=== PATIENT | female | born 1970 | race Caucasian/White ===

== ENCOUNTER 2018-02-23 15:58 | Emergency (ER) | payer OTHER ==
[2018-02-23] MEDS ORDERED: NS 1,000 ML IV ONE (16:17)
[2018-02-23] MEDS ORDERED: LORazepam 2 MG/ML INJ IVP ONE (16:21)
--- NOTE | 2018-02-23 16:21 | EDPHY ---
H & P Stated Complaint: suspected stroke Time Seen by Provider: 02/23/18 16:07 HPI/ROS: CHIEF COMPLAINT: Tremors HISTORY OF PRESENT ILLNESS: Patient is a 47-year-old female who comes from her primary care doctor quick is office with new onset tremors in her right arm and leg. She also has generalized muscle weakness and trouble ambulating. She states that her symptoms [place] at the airport [place] 1 week ago. Her noticed her head bobbing. Then over the next several days she began having gradually increasing tremors in her right arm. She also complains of generalized weakness in all of her extremities. Her states that she needs support to help ambulate. She he also complains of shooting pain from her left neck to left lower back and left thigh. She has no significant past medical history. No recent fevers or illness. She did receive a flu vaccination 2 months ago. No trauma. No trouble with speech. Not slurred. No trouble with word finding. Answers all questions appropriately. Seems calm. Severity: Moderate Modifying factors: None REVIEW OF SYSTEMS: Constitutional: denies: chills, fever, recent illness, recent injury EENTM: denies: blurred vision, double vision, nose congestion Respiratory: denies: cough, shortness of breath Cardiac: denies: chest pain, irregular heart rate, lightheadedness, palpitations Gastrointestinal/Abdominal: denies: abdominal pain, diarrhea, nausea, vomiting, blood streaked stools Genitourinary: denies: dysuria, frequency, hematuria, pain Musculoskeletal: See HPI Skin: denies: lesions, rash, jaundice, bruising Neurological: See HPI Hematologic/Lymphatic: denies: blood clots, easy bleeding, easy bruising Immunologic/allergic: denies: HIV/AIDS, transplant 10 systems reviewed and negative except as noted EXAM: GENERAL: Well-appearing, well-nourished and in no acute distress. HEAD: Atraumatic, normocephalic. EYES: Pupils equal round and reactive to light, extraocular movements intact, sclera anicteric, conjunctiva are normal. ENT: TMs normal, nares patent, oropharynx clear without exudates. Moist mucous membranes. NECK: Normal range of motion, supple without lymphadenopathy or JVD. LUNGS: Breath sounds clear to auscultation bilaterally and equal. No wheezes rales or rhonchi. HEART: Regular rate and rhythm without murmurs, rubs or gallops. ABDOMEN: Soft, nontender, normoactive bowel sounds. No guarding, no rebound. No masses appreciated. BACK: No CVA tenderness, no spinal tenderness, step-offs or deformities EXTREMITIES: Normal range of motion, no pitting or edema. No clubbing or cyanosis. NEUROLOGICAL: Cranial nerves II through XII grossly intact. Moderate head tremor/popping, noticeable right arm tremor. Normal speech, normal gait. 4/5 strength, normal movement in all extremities, normal sensation, normal reflexes. no pronator drift but does have trouble completely pronating right arm. I observed her ambulating she does not favor 1 side or the other but moves slowly and seems to feel unsteady. Able to lift legs off bed for greater than 5 sec. PSYCH: Normal mood, normal affect. SKIN: Warm, dry, normal turgor, no visible rashes or lesions. Source: Patient Exam Limitations: No limitations - Personal History LMP (Females 10-55): Post Menopausal Current Tetanus/Diphtheria Vaccine: Yes Current Tetanus Diphtheria and Acellular Pertussis (TDAP): Yes - Medical/Surgical History Hx Asthma: No Hx Chronic Respiratory Disease: No Hx Diabetes: No Hx Cardiac Disease: No Hx Renal Disease: No Hx Cirrhosis: No Hx Alcoholism: No Hx HIV/AIDS: No Hx Splenectomy or Spleen Trauma: No Other PMH: chronic UTI's, cystitis, uterine ablation - Family History Significant Family History: No pertinent family hx - Social History Smoking Status: Never smoked Alcohol Use: Sober Drug Use: None Constitutional: Initial Vital Signs Temperature (C) 36.7 C 02/23/18 16:00 Heart Rate 80 02/23/18 16:00 Respiratory Rate 18 02/23/18 16:00 Blood Pressure 127/73 H 02/23/18 16:00 O2 Sat (%) 98 02/23/18 16:00 O2 Delivery Mode Room Air Allergies/Adverse Reactions: No Known Allergies Allergy (Unverified 02/23/18 16:03) Home Medications: Medication Instructions Recorded Diazepam [Valium 5 MG (*)] 5 mg PO TID PRN #15 tab 02/23/18 Multi-Isis Liquid 02/23/18 Medical Decision Making - Diagnostics Imaging: Discussed imaging studies w/ call or contact centre team leader Radiologist ED Course/Re-evaluation: I immediately paged Dr. Rucker from Neurology. We discussed the symptomatology. He states this this sounds mostly like an anxiety attack but agrees with performing an MRI. He states that does not sound like Gu[place]ain[place]. He then called me back a few minutes later told me he talked the patient's primary doctor who told him that she had a mild baseline tremor. He suspects that her baseline symptoms may be being exacerbated by anxiety or caffeine. He recommends MRI of the brain with and without but not cervical spine. 6:20 p.m. we discussed the MRI and lab results which are all very reassuring. The patient's symptoms have practically resolved with Ativan. She no longer has a tremor at rest. She does admit to having a benign essential tremor at baseline. She has been up ambulating to the bathroom and states that she is doing much better. I offered admission but she states that she feels safe to go home. She has a follow-up Neurology appointment with Dr. Paniagua's PA on . I warned her strictly to return if her symptoms return or worsen. She is asking for muscle relaxant for her neck. I will treat her with Valium which will also help for anxiety. She and her understand agree with this plan. Differential Diagnosis: Partial list of the Differential diagnosis considered include but were not limited to; anxiety, essential tremor, and although unlikely based on the history and physical exam, I also considered CVA, [place]illain[place], tumor, ischemia, dissection. I discussed these differential diagnoses and the plan with the patient as well as the usual and expected course. The patient understands that the diagnosis is provisional and that in medicine we are not always correct and that further workup is often warranted. Usual and customary warnings were given. All of the patient's questions were answered. The patient was instructed to return to the emergency department should the symptoms at all worsen or return, otherwise to followup with the physician as we discussed. - Data Points Laboratory Results: Laboratory Results 02/23/18 16:20 02/23/18 16:20 Medications Given: Discontinued Medications Sodium Chloride (Ns) 1,000 mls @ 0 mls/hr IV ONCE ONE; Wide Open PRN Reason: Protocol Stop: 02/23/18 16:18 Last Admin: 02/23/18 16:26 Dose: 1,000 mls Lorazepam (Ativan Injection) 1 mg IVP EDNOW ONE Stop: 02/23/18 16:22 Last Admin: 02/23/18 16:26 Dose: 1 mg Point of Care Test Results: Chemistry 02/23/18 16:21 POC Sodium 141 mEq/L mEq/L (135-145) POC Potassium 3.5 mEq/L mEq/L (3.3-5.0) POC Chloride 103 mEq/L mEq/L (97-110) POC BUN 12 mg/dL mg/dL (7-23) POC Creatinine 0.7 mg/dL mg/dL (0.6-1.0) POC Glucose 91 mg/dL mg/dL (70-100) ISTAT H&H 02/23/18 16:21 POC Hgb 14.3 gm/dL gm/dL (12.6-16.3) POC Hct 42 % % (38-47) Departure - Departure Disposition: [facility] Inpatient Acute Clinical Impression: Essential tremor, Anxiety Condition: Fair Instructions: Anxiety (ED), Tremors (ED) Referrals: Layla Doherty, [employer]LECT[employer]STRUCTOR [Primary Care Provider] - As per Instructions Prescriptions: Diazepam [Valium 5 MG (*)] 5 mg PO TID PRN #15 tab PRN Reason: Spasms
[2018-02-23 16:28] LABS: PLATELET COUNT 301 10^3/uL (150-400)
[2018-02-23] MEDS ORDERED: GADOBUTROL 10 ML VIAL IVP ONE (16:48)
[2018-02-23 17:57] VITALS: BP 111/88
== END 2018-02-23 18:37 | disposition still patient (30) ==
DX: G25.0 Essential tremor (principal); F41.9 Anxiety disorder, unspecified; E86.9 Volume depletion, unspecified; Z78.0 Asymptomatic menopausal state
CPT/HCPCS: 82435-PO; 82565-PO; 82947-PO; 84132-PO; 84295-PO; 84520-PO; 85014-ER; 96374; A9585; J2060

== ENCOUNTER 2018-03-01 00:08 | Observation (INO) | payer OTHER ==
[2018-03-01] MEDS ORDERED: LORazepam 0.5 MG TAB PO PRN (01:43)
[2018-03-01] MEDS ORDERED: ONDANSETRON 4 MG/2 ML VIAL IVP PRN (01:43)
[2018-03-01] MEDS ORDERED: ONDANSETRON DISINTEGRATING 4 MG TAB PO PRN (01:43)
[2018-03-01] MEDS ORDERED: ACETAMINOPHEN 325 MG TAB PO PRN (01:43)
--- NOTE | 2018-03-01 03:02 | PDGENHP ---
History and Physical - Chief Complaint abnormal movements - History of Present Illness 47yo healthy F who presents as a direct admit from [facility] ED for evaluation of abnormal body movements. Symptoms started 1 week ago. First noticed while at airport. Head bobbing then right arm and leg tremors. Now has tremors in all four limbs and very severe head bobbing. She is having significant difficulty ambulating due to these symptoms and overall feels extremely weak. She denies any medications, supplements, exposures, recent infectious symptoms or travel. She was sent to our ED on 02/23 from her PCP office for these symptoms. She had a brain MRI at that time that was unremarkable. She was given valium, which she took with no effect. She was scheduled to follow up with Dr Paniagua in neurology clinic on 03/02 however her symptoms continued to worsen so she went to [facility] ED this evening. Because she is an employee at [employer], the patient requested transfer to this facility and is being admitted here. At [facility], she was given ketamine and haldol which apparently made her symptoms better. She is quite somnolent and I am unable to obtain a full neurologic exam but she currently does not have any abnormal movements. History Information - Allergies/Home Medication List Allergies/Adverse Reactions: No Known Allergies Allergy (Unverified 02/23/18 16:03) Home Medications: Multi-Isis Liquid 02/23/18 [Last Taken Unknown] I have personally reviewed and updated: family history, medical history, social history, surgical history - Past Medical History Additional medical history: chronic UTIs/cystitis - Surgical History Additional surgical history: uterine ablation - Family History Additional family history: sister - epilepsy, father - glioblastoma - Social History Smoking Status: Never smoked Alcohol Use: None Drug Use: None Additional social history: Works as RT at [employer], lives with Review of Systems Review of Systems: ROS: 10pt was reviewed & negative except for what was stated in HPI & below Physical Exam Physical Exam: Temp Pulse Resp BP Pulse Ox 37.1 C 75 16 112/62 92 03/01/18 02:37 03/01/18 02:37 03/01/18 02:37 03/01/18 02:37 03/01/18 02:37 Constitutional: no apparent distress, appears nourished, not in pain, other ( somnolent) Eyes: PERRL, anicteric sclera, EOMI Ears, Nose, Mouth, Throat: moist mucous membranes, hearing normal, ears appear normal, no oral mucosal ulcers Cardiovascular: regular rate and rhythym, no murmur, rub, or gallop, No edema Respiratory: no respiratory distress, no rales or rhonchi, clear to auscultation Gastrointestinal: normoactive bowel sounds, soft, non-tender abdomen, no palpable masses Genitourinary: no bladder fullness, no bladder tenderness Skin: warm, normal color, no rashes or abrasions, no fluctuance, no induration, No mottled Musculoskeletal: full muscle strength, no muscle tenderness, normal joint ROM, no joint effusions Neurologic: AAOx3, other (unable to obtain full neurologic exam d/t somnolence) Psychiatric: interacting appropriately Assessment & Plan Assessment: 47yo healthy F who presents as a direct admit from [facility] ED for evaluation of 1-2 weeks of abnormal body movements. Plan: 1. Involuntary movements: Manifested as head bobbing, limb tremors. Unclear if this represents functional movement disorder or has organic etiology. Recent brain MRI, heavy metal screen, TSH, B12 levels unremarkable. - Check ESR, CRP, ceruloplasmin, HIV, syphilis, CBC w/diff (eval for acanthocytes) - Neurology consult in AM - Consider LP, EMG pending above - Hold on PRN benzodiazepines to allow for full neuro exam in AM (unless symptoms severe) 2. Gait instability: Related to above - PT, OT VTE ppx: SCDs Code: full Diet: regular Dispo: Admit under observation
[2018-03-01] MEDS ORDERED: CALCIUM CARBONATE 500 MG CHEWABLE TAB PO PRN (04:31)
[2018-03-01 05:24] LABS: PLATELET COUNT 259 10^3/uL (150-400)
[2018-03-01 05:41] LABS: CREATINE KINASE 44 IU/L (0-156)
[2018-03-01 06:59] LABS: HIV TYPE 1 AND 2 NEGATIVE (NEGATIVE)
[2018-03-01 08:05] VITALS: BP 137/64
--- NOTE | 2018-03-01 15:03 | PDDCSUM ---
Discharge Summary Discharge Summary: Date of Admission/Discharge: 03/01/2018 Consults: Neurology Procedures: N/A Followup: Appointment with Neurology tomorrow, 03/02/2018 Hospital Course Problem List: 47yo healthy F who presents as a direct admit from [facility] ED for evaluation of 1-2 weeks of abnormal body movements. Involuntary movements: Manifested as head bobbing, limb tremors. Recent brain MRI, heavy metal screen, TSH, B12 levels unremarkable. 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 Gait instability: Related to above - PT, OT cleared this AM Time spent on discharge was >35 minutes with >50% of time spent on patient education and counseling
== END 2018-03-01 12:41 | disposition home or self-care (01) ==
LOC: F3N 01:24
PROVIDERS: ADMIT Internal Medicine; ATTEND Internal Medicine
DX: G25.3 Myoclonus (principal); R26.9 Unspecified abnormalities of gait and mobility
CPT/HCPCS: 97161; 97166; G0378; 82390-90

== ENCOUNTER → 2018-05-17 | Outpatient (CLI) | payer OTHER | LOC: EMCIMAGING 12:49 | PROVIDERS: ATTEND Nurse Practitioner Family | DX: R30.0 Dysuria (principal); R35.0 Frequency of micturition | CPT/HCPCS: 74176-PN ==